=== PATIENT | male | born 1945 | race Caucasian/White ===

== ENCOUNTER → 2017-03-19 | Outpatient (CLI) | payer MEDICARE ==
[~2017-03-19] MED LIST: ASPI81TA85 PO; ATOR1TAB21 PO; CALCIUM; CO Q200C10 PO; FISHCAP PO; GARLPOW PO; MULT1TAB10 PO; OMEP40CA2 PO; SILICA; SIMV40TA2 PO; VITA10006 PO; VITA100066 PO
--- NOTE | 2017-03-19 15:29 | REP ---
BILATERAL KNEE SERIES: Five views of bilateral knees performed. There is no acute fracture or dislocation. On the left there is mild medial joint space narrowing with subchondral sclerosis, as well as mild spurring of the medial tibial spine. There is mild spurring of the superior and inferior poles of the patella with a small joint effusion. On the right, there is mild medial joint space narrowing with subchondral sclerosis. There is mild spurring of the medial tibial spine and medial femoral condyle. There is very mild spurring of the superior and inferior poles of the patella. IMPRESSION: Mild bilateral degenerative changes. Small left knee joint effusion. Signed by Theodore Coulter MD 03/19/2017 04:42 P
== END ==
LOC: M LAB 14:16
PROVIDERS: ATTEND Family Medicine
DX: Z00.00 Encounter for general adult medical examination without abnormal findings (principal); M17.0 Bilateral primary osteoarthritis of knee; M25.462 Effusion, left knee

== ENCOUNTER 2017-05-03 15:16 | Emergency (ER) | payer MEDICARE ==
[~2017-05-03] VITALS: Ht 177.8 cm; Wt 88.6 kg
[~2017-05-03 15:16] MED LIST changes: -OMEP40CA2 PO
[2017-05-03] MEDS ORDERED: ASPIRIN 81 MG CHEW TABLET PO ONE (15:30)
[2017-05-03] MEDS ORDERED: OMEP40CA2 PO (15:33)
[2017-05-03 16:15] LABS: BASO % 0.2 % (0.0-1.0); EOS # 0.1 10^3/uL (0.0-0.50); EOS % 1.9 % (0.0-3.0); IMMATURE GRANULOCYTE % 0.2 % (0-0); LYMPH % 30.4 % (24.0-44.0); MEAN CORPUSCULAR HEMOGLOBIN 32.8 pg (27.0-33.0); MEAN CORPUSCULAR HGB CONC 35.5 g/dl (32.0-36.5); MEAN CORPUSCULAR VOLUME 92.3 fl (80.0-96.0); MONO # 0.4 10^3/uL (0.0-0.8); MONO % 6.5 % (0.0-5.0); NEUTROPHILS # 3.9 10^3/uL (1.8-7.7); NEUTROPHILS % 60.8 % (36.0-66.0); PLATELET COUNT, AUTOMATED 167 10^3/uL (150-450); RED CELL DISTRIBUTION WIDTH 13.7 % (11.5-14.5); WHITE BLOOD COUNT 6.4 10^3/uL (4.0-10.0)
[2017-05-03 16:41] LABS: ALBUMIN 3.8 GM/DL (3.2-5.2); ALBUMIN/GLOBULIN RATIO 1.19 (1.00-1.93); ALKALINE PHOSPHATASE 107 U/L (45-117); ALT/SGPT 32 U/L (12-78); ANION GAP 8 MEQ/L (8-16); AST/SGOT 22 U/L (15-37); BILIRUBIN,DIRECT 0.2 MG/DL (0.0-0.2); BILIRUBIN,TOTAL 0.6 MG/DL (0.2-1.0); BLOOD UREA NITROGEN 14 MG/DL (7-18); CALCIUM LEVEL 8.9 MG/DL (8.8-10.2); CARBON DIOXIDE LEVEL 26 MEQ/L (21-32); CHLORIDE LEVEL 108 MEQ/L (98-107); CREATININE FOR GFR 0.88 MG/DL (0.70-1.30); GLOMERULAR FILTRATION RATE > 60.0 (>42); GLUCOSE, FASTING 112 MG/DL (83-110); POTASSIUM SERUM 3.9 MEQ/L (3.5-5.1); SODIUM LEVEL 142 MEQ/L (136-145)
[2017-05-03 16:54] LABS: INR 0.98
[2017-05-03 18:15] VITALS: BP 138/85
--- NOTE | 2017-05-04 11:29 | REP ---
Chest x-ray: Two views. History: Chest pain. Findings: EKG monitoring electrodes overlie the chest. The lungs are symmetrically aerated and clear. Heart is not enlarged. The aorta is tortuous. No significant bony abnormality. Impression: No active disease. Signed by Handy Aeljo MD 05/04/2017 09:35 A
--- NOTE | 2017-05-05 07:53 | ECGEPIP ---
Stationary ECG Study [facility] - ED Test Date: 2017-05-03 Pat Name: HUNTER KRAMER Department: Room: - Gender: M [employer]: marquita : 1945 Requested By: Sandoval Samaniego Order Number: [id number] Reading MD: Sandoval Arambula Measurements Intervals [place] Rate: 65 P: 48 FL: 198 QRS: -9 QRSD: 102 T: 56 QT: 401 QTc: 420 Interpretive Statements SINUS RHYTHM Electronically Signed On 05-05-2017 7:52:34 EDT by Sandoval Arambula
== END 2017-05-03 18:27 | disposition home or self-care (01) ==
LOC: M ED 15:16
DX: R07.9 Chest pain, unspecified (principal); E78.5 Hyperlipidemia, unspecified; K21.9 Gastro-esophageal reflux disease without esophagitis; Z79.82 Long term (current) use of aspirin; Z79.899 Other long term (current) drug therapy; J30.81 Allergic rhinitis due to animal (cat) (dog) hair and dander; J30.89 Other allergic rhinitis; Z87.891 Personal history of nicotine dependence; Z82.49 Family history of ischemic heart disease and other diseases of the circulatory system
CPT/HCPCS: 36415; 71020; 80048; 80076; 82550; 82553; 83690; 83880; 84484; 85025; 85610; 93005; 93041; 94760; 99285; G0480

== ENCOUNTER → 2017-09-29 | Outpatient (CLI) | payer MEDICARE ==
[2017-09-29 15:03] LABS: ANION GAP 5 MEQ/L (8-16); BLOOD UREA NITROGEN 13 MG/DL (7-18); CALCIUM LEVEL 8.7 MG/DL (8.8-10.2); CARBON DIOXIDE LEVEL 29 MEQ/L (21-32); CHLORIDE LEVEL 109 MEQ/L (98-107); CREATININE FOR GFR 1.04 MG/DL (0.70-1.30); GLOMERULAR FILTRATION RATE > 60.0 (>42); GLUCOSE, FASTING 87 MG/DL (70-100); POTASSIUM SERUM 4.1 MEQ/L (3.5-5.1); SODIUM LEVEL 143 MEQ/L (136-145)
== END ==
LOC: M LAB 14:11
DX: I10 Essential (primary) hypertension (principal)
CPT/HCPCS: 80048

== ENCOUNTER 2018-08-03 10:18 | Emergency (ER) | payer MEDICARE ==
[~2018-08-03] VITALS: Ht 177.8 cm; Wt 86.4 kg
[~2018-08-03 10:18] MED LIST changes: +OMEP40CA2 PO
[2018-08-03] MEDS ORDERED: LOSA50TA88 PO (10:26)
--- NOTE | 2018-08-03 10:56 | REP ---
CT Head without contrast HISTORY: Infarction COMPARISON: None Areas of decreased attenuation are present in the periventricular and subcortical white matter. This represents small-vessel ischemic disease. There is no intraparenchymal hemorrhage, acute infarct, mass or midline shift. The ventricular system and cortical sulci are dilated consistent with minimal volume loss. There is no extra cerebral collection. There is no fracture. A retention cyst is present in the left sphenoid sinus. IMPRESSION: 1. Small vessel ischemic disease. 2. Minimal volume loss. Electronically Signed by Jesús Portillo MD 08/03/2018 10:48 A
--- NOTE | 2018-08-03 10:58 | REP ---
Chest one-view HISTORY: Infarction Comparison: 05/03/2017 The lungs are clear. The heart is normal in size. The pulmonary vasculature is normal in appearance. Impression: No acute disease. Electronically Signed by Jesús Portillo MD 08/03/2018 10:50 A
[2018-08-03 11:20] LABS: BASO % 0.4 % (0.0-1.0); EOS # 0.1 10^3/uL (0.0-0.50); EOS % 1.8 % (0.0-3.0); HEMATOCRIT 40.3 % (42.0-52.0); HEMOGLOBIN 14.4 g/dl (13.5-17.5); LYMPH # 1.3 10^3/uL (1.5-4.5); LYMPH % 23.4 % (24.0-44.0); MEAN CORPUSCULAR HEMOGLOBIN 32.4 pg (27.0-33.0); MEAN CORPUSCULAR HGB CONC 35.7 g/dl (32.0-36.5); MEAN CORPUSCULAR VOLUME 90.6 fl (80.0-96.0); MONO # 0.4 10^3/uL (0.0-0.8); MONO % 6.2 % (0.0-5.0); NEUTROPHILS # 3.9 10^3/uL (1.8-7.7); PLATELET COUNT, AUTOMATED 176 10^3/uL (150-450); RED BLOOD COUNT 4.45 10^6/uL (4.30-6.10); WHITE BLOOD COUNT 5.7 10^3/uL (4.0-10.0)
[2018-08-03 11:31] LABS: INR 1.01; PROTHROMBIN TIME 13.4 SECONDS (12.1-14.4)
[2018-08-03 11:45] LABS: ALBUMIN 3.8 GM/DL (3.2-5.2); ALT/SGPT 33 U/L (12-78); BILIRUBIN,DIRECT 0.2 MG/DL (0.0-0.2); BLOOD UREA NITROGEN 14 MG/DL (7-18); CALCIUM LEVEL 9.1 MG/DL (8.8-10.2); CARBON DIOXIDE LEVEL 26 MEQ/L (21-32); CHLORIDE LEVEL 106 MEQ/L (98-107); CREATININE FOR GFR 0.92 MG/DL (0.70-1.30); GLOMERULAR FILTRATION RATE > 60.0 (>42); GLUCOSE, FASTING 106 MG/DL (70-100); POTASSIUM SERUM 4.3 MEQ/L (3.5-5.1); SODIUM LEVEL 142 MEQ/L (136-145); TOTAL PROTEIN 7.2 GM/DL (6.4-8.2)
[2018-08-03 11:51] LABS: CPK CREATINE PHOSPHOKINASE 61 U/L (39-308); TROPONIN I < 0.02 NG/ML (< 0.10)
--- NOTE | 2018-08-03 14:11 | REP ---
MRA BRAIN WITHOUT CONTRAST: HISTORY: Altered mental status. 3D [id number] MR angiography was performed at the level of the [place]. There is no aneurysm or arteriovenous malformation. Mild atherosclerotic disease involves the cavernous and supraclinoid internal carotid arteries. There is origin of the right posterior cerebral artery. Major intracranial vessels are patent. The left vertebral artery is dominant. IMPRESSION: 1. There is no aneurysm or arteriovenous malformation. 2. Atherosclerotic disease as described above. Electronically Signed by Jesús Portillo MD 08/03/2018 02:11 P
--- NOTE | 2018-08-03 14:51 | ECGEPIP ---
Stationary ECG Study [facility] - ED Test Date: 2018-08-03 Pat Name: HUNTER KRAMER Department: Room: - Gender: M [employer]: ct : 1945 Requested By: Wanda Saravia Order Number: [id number] Reading MD: Wanda Saravia Measurements Intervals [place] Rate: 71 P: 58 PA: 184 QRS: -5 QRSD: 102 T: 52 QT: 380 QTc: 415 Interpretive Statements SINUS RHYTHM ?PRIOR INFERIOR INFARCT INCREASED RATE 05/03/17 Electronically Signed On 08-03-2018 14:51:19 EST by Wanda Saravia
[2018-08-03 15:13] VITALS: BP 156/88
--- NOTE | 2018-08-03 15:20 | REP ---
MR BRAIN WITHOUT CONTRAST: HISTORY: Altered mental status. COMPARISON: CT 08/03/2018. Areas of increased signal intensity on T2-weighted images are present in the periventricular and subcortical white matter. This represents small vessel ischemic disease. There is no intraparenchymal hemorrhage, infarct, mass or midline shift. The ventricular system and cortical sulci are dilated consistent with minimal volume loss. There is no extracerebral collection. A retention cyst is present in the left sphenoid sinus. IMPRESSION: 1. Small vessel ischemic disease. 2. Minimal volume loss. Electronically Signed by Jesús Portillo MD 08/03/2018 03:23 P
== END 2018-08-03 15:14 | disposition home or self-care (01) ==
LOC: M ED 10:18
DX: G45.9 Transient cerebral ischemic attack, unspecified (principal); I10 Essential (primary) hypertension; E78.5 Hyperlipidemia, unspecified

== ENCOUNTER → 2018-08-21 | Outpatient (CLI) | payer MEDICARE ==
[~2018-08-21] MED LIST changes: +LOSA50TA88 PO
--- NOTE | 2018-08-21 13:28 | REP ---
Clinical: Transient ischemic attack . Technique: Coulter scale and color Doppler evaluation using linear high frequency transducer Findings: Two-dimensional coulter scale and color images demonstrate intimal thickening through the bilateral common carotid arteries mild mixed plaquing at the carotid bulbs and proximal internal carotid arteries. Color Doppler interrogation demonstrates normal biphasic arterial wave patterns and velocities with no significant spectral broadening. Normal flow direction is appreciated in the bilateral vertebral arteries. RIGHT (cm/s) LEFT (cm/s) ICA peak systolic velocity 97.3 82.1 ICA diastolic velocity 31.3 29.3 ECA peak systolic velocity 112.0 93.0 CCA peak systolic velocity 89.9 97.4 ICA/CCA ratio 1.1 0.84 Impression: No hemodynamically significant areas of narrowing or stenosis appreciated. Based on set standards narrowing falls within the less than 50% range. Electronically Signed by Negrito Keen MD 08/21/2018 01:19 P
== END ==
LOC: M RAD 12:35
PROVIDERS: ATTEND Family Medicine
DX: G45.9 Transient cerebral ischemic attack, unspecified (principal)

== ENCOUNTER → 2020-09-18 | Outpatient (CLI) | payer MEDICARE ==
[~2020-09-18] MED LIST changes: -ASPI81TA85 PO; +ASPI81TA86 PO; -OMEP40CA2 PO; +OMEP40CA97 PO; -SIMV40TA2 PO; +SIMV40TA20 PO
[2020-09-18 11:17] LABS: HEMATOCRIT 41.7 % (42.0-52.0); HEMOGLOBIN 14.3 g/dl (13.5-17.5); MEAN CORPUSCULAR HEMOGLOBIN 32.7 pg (27.0-33.0); MEAN CORPUSCULAR HGB CONC 34.3 g/dl (32.0-36.5); MEAN CORPUSCULAR VOLUME 95.4 fl (80.0-96.0); PLATELET COUNT, AUTOMATED 182 10^3/uL (150-450); RED BLOOD COUNT 4.37 10^6/uL (4.30-6.10); WHITE BLOOD COUNT 5.4 10^3/uL (4.0-10.0)
[2020-09-18 11:58] LABS: ALBUMIN 3.9 GM/DL (3.2-5.2); ALT/SGPT 29 U/L (12-78); BILIRUBIN,TOTAL 0.9 MG/DL (0.2-1.0); BLOOD UREA NITROGEN 14 MG/DL (7-18); CALCIUM LEVEL 9.4 MG/DL (8.8-10.2); CARBON DIOXIDE LEVEL 28 MEQ/L (21-32); CHLORIDE LEVEL 109 MEQ/L (98-107); CHOLESTEROL LEVEL 111 MG/DL (<200); CREATININE FOR GFR 0.91 MG/DL (0.70-1.30); GLOMERULAR FILTRATION RATE > 60.0 (>42); GLUCOSE, FASTING 101 MG/DL (70-100); HDL CHOLESTEROL 37 MG/DL (>40); LDL CHOLESTEROL 63 MG/DL (<100); NON-HDL-C 74 MG/DL; POTASSIUM SERUM 4.3 MEQ/L (3.5-5.1); SODIUM LEVEL 141 MEQ/L (136-145); TOTAL PROTEIN 7.3 GM/DL (6.4-8.2); TRIGLYCERIDES LEVEL 55 MG/DL (<150)
== END ==
LOC: M LAB 09:25
PROVIDERS: ATTEND Family Medicine
DX: Z12.5 Encounter for screening for malignant neoplasm of prostate (principal); I10 Essential (primary) hypertension
CPT/HCPCS: 36415; 80053; 80061; 85027; G0103

== ENCOUNTER → 2021-02-09 | Outpatient (CLI) | payer MEDICARE, SELFPAY ==
[~2021-02-09] MED LIST changes: +OMEP40CA4 PO; -OMEP40CA97 PO
== END ==
LOC: M LABSMTC 10:01
PROVIDERS: ATTEND Pediatrics
DX: Z20.822 Contact with and (suspected) exposure to COVID-19 (principal)

== ENCOUNTER 2021-10-19 10:07 | Emergency (ER) | payer MEDICARE ==
[~2021-10-19] VITALS: Ht 177.8 cm; Wt 78.9 kg
[~2021-10-19 10:07] MED LIST changes: +LOSA50TA28 PO; -LOSA50TA88 PO
[2021-10-19 10:53] LABS: BASO % 0.4 % (0.0-1.0); EOS # 0.1 10^3/uL (0.0-0.5); EOS % 1.8 % (0.0-3.0); HEMOGLOBIN 14.6 g/dl (13.5-17.5); LYMPH % 20.5 % (24.0-44.0); MEAN CORPUSCULAR HEMOGLOBIN 33.6 pg (27.0-33.0); MEAN CORPUSCULAR HGB CONC 35.6 g/dl (32.0-36.5); MEAN CORPUSCULAR VOLUME 94.5 fl (80.0-96.0); MONO # 0.4 10^3/uL (0.0-0.8); MONO % 7.5 % (2.0-8.0); NEUTROPHILS # 3.4 10^3/uL (1.5-8.5); NEUTROPHILS % 69.6 % (36.0-66.0); PLATELET COUNT, AUTOMATED 168 10^3/uL (150-450); RED BLOOD COUNT 4.34 10^6/uL (4.30-6.10); WHITE BLOOD COUNT 4.9 10^3/uL (4.0-10.0)
[2021-10-19 11:22] LABS: CK-MB VALUE MASS < 1.0 NG/ML (<3.6); CPK CREATINE PHOSPHOKINASE 43 U/L (39-308); MB/CK RELATIVE INDEX 2.33 (< OR =4)
[2021-10-19 11:30] LABS: ALBUMIN 3.9 GM/DL (3.2-5.2); ALT/SGPT 23 U/L (12-78); BILIRUBIN,DIRECT 0.3 MG/DL (0.0-0.2); BILIRUBIN,TOTAL 1.1 MG/DL (0.2-1.0); BLOOD UREA NITROGEN 14 MG/DL (7-18); CALCIUM LEVEL 8.6 MG/DL (8.8-10.2); CARBON DIOXIDE LEVEL 27 MEQ/L (21-32); CHLORIDE LEVEL 110 MEQ/L (98-107); GLOMERULAR FILTRATION RATE > 60.0 (>42); GLUCOSE, FASTING 94 MG/DL (70-100); LIPASE 99 U/L (73-393); NT-PRO BNP 35 PG/ML (<125); POTASSIUM SERUM 4.2 MEQ/L (3.5-5.1); SODIUM LEVEL 141 MEQ/L (136-145)
[2021-10-19 12:26] LABS: CK-MB VALUE MASS < 1.0 NG/ML (<3.6); CPK CREATINE PHOSPHOKINASE 33 U/L (39-308); MB/CK RELATIVE INDEX 3.03 (< OR =4)
[2021-10-19 14:22] LABS: CK-MB VALUE MASS < 1.0 NG/ML (<3.6); CPK CREATINE PHOSPHOKINASE 30 U/L (39-308); MB/CK RELATIVE INDEX 3.33 (< OR =4)
[2021-10-19 14:45] VITALS: BP 125/74
== END 2021-10-19 15:07 | disposition home or self-care (01) ==
LOC: M ED 10:07
DX: R07.9 Chest pain, unspecified (principal); R00.1 Bradycardia, unspecified; I10 Essential (primary) hypertension; Z87.891 Personal history of nicotine dependence; Z79.82 Long term (current) use of aspirin; Z79.899 Other long term (current) drug therapy

== ENCOUNTER → 2022-10-09 | Outpatient (CLI) | payer MEDICARE ==
[~2022-10-09] MED LIST changes: +ASPI81TA26 PO; +OMEP-173 PO
== END ==
LOC: M LABSMTC 09:11
PROVIDERS: ATTEND Anesthesiology
DX: Z01.812 Encounter for preprocedural laboratory examination (principal)

== ENCOUNTER 2022-10-14 08:17 | Day surgery (SDC) | payer MEDICARE ==
[~2022-10-14] VITALS: Ht 177.8 cm; Wt 74.8 kg
[~2022-10-14 08:17] MED LIST changes: +NS 1,000 ML IV ONE
[2022-10-14] MEDS ORDERED: propofoL 200 MG/20 ML VIAL As Ordered ONE (09:05)
[2022-10-14] MEDS ORDERED: LIDOCAINE 2% 100MG/5ML SDV (FOR ANES.) As Ordered ONE (09:05)
[2022-10-14 10:55] VITALS: BP 107/59
== END 2022-10-14 10:57 | disposition home or self-care (01) ==
LOC: M OPP 08:17
PROVIDERS: ATTEND Internal Medicine Gastroenterology
DX: Z12.11 Encounter for screening for malignant neoplasm of colon (principal); K64.0 First degree hemorrhoids; K57.30 Diverticulosis of large intestine without perforation or abscess without bleeding; R12 Heartburn; I10 Essential (primary) hypertension; E78.00 Pure hypercholesterolemia, unspecified; Z79.02 Long term (current) use of antithrombotics/antiplatelets; Z79.82 Long term (current) use of aspirin; Z79.899 Other long term (current) drug therapy; Z88.1 Allergy status to other antibiotic agents
CPT/HCPCS: 43235; G0121

== ENCOUNTER 2024-01-21 19:47 | Emergency (ER) | payer MEDICARE ==
[~2024-01-21] VITALS: Ht 177.8 cm; Wt 79.0 kg
[~2024-01-21 19:47] MED LIST changes: -NS 1,000 ML IV ONE
[2024-01-21 19:48] VITALS: TEMP 97.7
[2024-01-21 20:21] LABS: BASO # 0.1 10^3/uL (0.0-0.2); BASO % 0.7 % (0.0-1.0); EOS # 0.3 10^3/uL (0.0-0.5); EOS % 3.7 % (0.0-3.0); HEMATOCRIT 39.7 % (42.0-52.0); LYMPH # 1.8 10^3/uL (1.5-5.0); LYMPH % 24.7 % (24.0-44.0); MEAN CORPUSCULAR HEMOGLOBIN 33.2 pg (27.0-33.0); MEAN CORPUSCULAR HGB CONC 35.3 g/dl (32.0-36.5); MEAN CORPUSCULAR VOLUME 94.1 fl (80.0-96.0); MONO # 0.6 10^3/uL (0.0-0.8); MONO % 8.4 % (2.0-8.0); NEUTROPHILS # 4.5 10^3/uL (1.5-8.5); NEUTROPHILS % 62.4 % (36.0-66.0); PLATELET COUNT, AUTOMATED 189 10^3/uL (150-450); RED BLOOD COUNT 4.22 10^6/uL (4.30-6.10); WHITE BLOOD COUNT 7.2 10^3/uL (4.0-10.0)
[2024-01-21 20:43] LABS: LIPASE 41 U/L (12-53)
[2024-01-21 20:45] LABS: ALBUMIN 3.9 G/DL (3.2-5.2); ALKALINE PHOSPHATASE 131 U/L (46-116); ALT/SGPT 25 U/L (7.0-40); AST/SGOT 15 U/L (<34); BILIRUBIN,DIRECT < 0.1 MG/DL (<0.4); BILIRUBIN,TOTAL 0.5 MG/DL (0.3-1.2); BLOOD UREA NITROGEN 18 MG/DL (9-23); CALCIUM LEVEL 9.3 MG/DL (8.3-10.6); CARBON DIOXIDE LEVEL 26 MMOL/L (20-31); CHLORIDE LEVEL 112 MMOL/L (98-107); CREATININE FOR GFR 0.88 MG/DL (0.70-1.30); GLOMERULAR FILTRATION RATE > 60.0 (>42); GLUCOSE, FASTING 132 MG/DL (74-106); POTASSIUM SERUM 4.2 MMOL/L (3.5-5.1); SODIUM LEVEL 144 MMOL/L (136-145); TOTAL PROTEIN 7.1 G/DL (5.7-8.2)
[2024-01-21 22:49] VITALS: BP 144/75; O2SAT 95
== END 2024-01-21 22:58 | disposition left against medical advice (07) ==
LOC: M ED 19:47
DX: Z53.21 Procedure and treatment not carried out due to patient leaving prior to being seen by health care provider (principal)

== ENCOUNTER → 2024-01-27 | Outpatient (CLI) | payer MEDICARE ==
[2024-01-27 14:43] LABS: BLOOD UREA NITROGEN 15 MG/DL (9-23); CALCIUM LEVEL 9.3 MG/DL (8.3-10.6); CARBON DIOXIDE LEVEL 29 MMOL/L (20-31); CHLORIDE LEVEL 108 MMOL/L (98-107); GLOMERULAR FILTRATION RATE > 60.0 (>42); GLUCOSE, FASTING 86 MG/DL (74-106); POTASSIUM SERUM 4.1 MMOL/L (3.5-5.1); SODIUM LEVEL 143 MMOL/L (136-145)
== END ==
LOC: M LAB 13:08
PROVIDERS: ATTEND Family Medicine
DX: K40.20 Bilateral inguinal hernia, without obstruction or gangrene, not specified as recurrent (principal)

== ENCOUNTER → 2024-02-02 | Outpatient (CLI) | payer MEDICARE ==
[~2024-02-02] MED LIST changes: +GASTROGRAFIN SOLUTION 30ML As Ordered ONE; +ISOVUE-370 76% 100ML VIAL As Ordered ONE
== END ==
LOC: M RAD 12:00
PROVIDERS: ATTEND Family Medicine
DX: K40.20 Bilateral inguinal hernia, without obstruction or gangrene, not specified as recurrent (principal); R10.31 Right lower quadrant pain
CPT/HCPCS: 74177; Q9963; Q9967

== ENCOUNTER → 2025-05-26 | Outpatient (CLI) | payer MEDICARE ==
[~2025-05-26] MED LIST changes: -GASTROGRAFIN SOLUTION 30ML As Ordered ONE; -ISOVUE-370 76% 100ML VIAL As Ordered ONE
== END ==
LOC: M PLAIMG 11:24 → M PLALAB 11:24
PROVIDERS: ATTEND Family Medicine
DX: M16.12 Unilateral primary osteoarthritis, left hip (principal)

== ENCOUNTER → 2025-07-18 | Outpatient (CLI) | payer MEDICARE | LOC: M PLAIMG 14:30 | PROVIDERS: ATTEND Family Medicine | DX: R05.3 Chronic cough (principal); I77.810 Thoracic aortic ectasia ==